=== PATIENT | male | born 1995 | race Caucasian/White ===

== ENCOUNTER 2020-10-16 11:12 | Emergency (ER) | payer MEDICAID, OTHER ==
[~2020-10-16] VITALS: Ht 170.2 cm; Wt 73.0 kg
[2020-10-16 11:25] VITALS: BP 131/77
[2020-10-16] MEDS ORDERED: BACITRACIN ZINC OINT UDPKT TOP ONE (12:45)
[2020-10-16] MEDS ORDERED: TETANUS, DIPHTHERIA, PERTUSSIS VAC/PF 0.5ML (>7YR OLD) IM ONE (12:45)
[2020-10-16] MEDS ORDERED: LIDOCAINE HCL/EPINEPHRINE 1%-EPI 1:100,000 20 ML VIAL INFIL ONE (12:45)
== END 2020-10-16 14:02 | disposition home or self-care (01) ==
LOC: ER 11:12
DX: S61.211A Laceration without foreign body of left index finger without damage to nail, initial encounter (principal); W26.0XXA Contact with knife, initial encounter; Y93.89 Activity, other specified; Y92.89 Other specified places as the place of occurrence of the external cause; Y99.8 Other external cause status
CPT/HCPCS: 12002; 90471; 90715; 99283; J3490

== ENCOUNTER 2020-10-19 15:48 | Emergency (ER) | payer MEDICAID, OTHER ==
[~2020-10-19] VITALS: Ht 167.6 cm; Wt 73.0 kg
[2020-10-19 15:55] VITALS: BP 109/44
[2020-10-19] MEDS ORDERED: BACITRACIN ZINC OINT UDPKT TOP ONE (16:45)
== END 2020-10-19 16:55 | disposition home or self-care (01) ==
LOC: ER 15:58
DX: Z48.00 Encounter for change or removal of nonsurgical wound dressing (principal)
CPT/HCPCS: 99282

== ENCOUNTER 2023-08-26 08:23 | Emergency (ER) | payer MEDICAID, OTHER ==
[~2023-08-26] VITALS: Ht 167.6 cm; Wt 54.4 kg
[2023-08-26 08:31] VITALS: BP 144/120; PULSE 109; RESP 16; TEMP 98.2; O2SAT 99
== END 2023-08-26 09:02 | disposition left against medical advice (07) ==
LOC: ER 08:23
DX: R68.84 Jaw pain (principal)
CPT/HCPCS: 99281; Z7610 ×2